=== PATIENT | female | born 1970 | race Caucasian/White ===

== ENCOUNTER 2024-05-02 13:56 | Outpatient (CLI) | payer OTHER, SELFPAY | END 2024-05-02 13:57 | disposition home or self-care (01) | LOC: NFLDUCREF 13:57 | PROVIDERS: PCP Student in an Organized Health Care Education/Training Program; Visit Provider Nurse Practitioner Family | DX: M79.646 Pain in unspecified finger(s) (principal); M25.449 Effusion, unspecified hand | CPT/HCPCS: 84550 ==

== ENCOUNTER 2025-09-15 16:48 | Emergency (ER) | payer MEDICARE, SELFPAY ==
--- OUTSIDE RECORDS SUMMARY | 2024-07-22 01:22 | XMS_ITS | Continuity of Care Document ---
Author Organization [facility] Address [address] [address] [place] [address] Phone Care Team Providers Care Chemistry Department Chair Name Role Phone Theron Snyder MD Unavailable Unavailable Allergies, Adverse Reactions, Alerts Substance Reaction Status Criticality codeine Anaphylaxis Active No Information Medications Medication Instructions Dosage Effective Dates (start - stop) Status Comments pantoprazole 40 mg tablet,delayed release take 1 tablet by oral route every day 30 min before your first meal of the day - Active Needs to keep 06/04/24 OV for further refills. hydroxyzine HCl 10 mg tablet take 2 tablet by oral route every day for 1 bedtime 2 tablet - Active albuterol sulfate HFA 90 mcg/actuation aerosol inhaler inhale 2 puff by inhalation route every 4 - 6 hours as needed 180 MCG - Active Dulcolax (bisacodyl) 5 mg tablet,delayed release Take 2 tablets per colonoscopy prep instructions received from [facility] - Active Procedure date: 10/12/22 Miralax 17 gram/dose oral powder Take by oral route as directed per colonoscopy prep instructions received from [facility] - Active Please dispense TWO bottles for procedure date 10/12/22. gabapentin 100 mg capsule take 1 capsule by oral route 3 times every day 100 MG - Active gabapentin 800 mg tablet take 1 tablet b y oral route 3 times every day 800 MG - Active Ambien 5 mg tablet take 1 tablet by oral route every bedtime as needed up to every other night 5 MG - Active amitriptyline 100 mg tablet take 3 tablet by oral route every day at bedtime 300 MG - Active Paxil 40 mg tablet take 1.5 tablet by oral route every day 60 MG - Active hydrochlorothiazide 12.5 mg tablet take 1 tablet by oral route every day 12.5 MG - Active metoprolol succinate ER 100 mg tablet,extended release 24 hr take 1 tablet by oral route every day 100 MG - Active Vitamin D2 1,250 mcg (50,000 unit) capsule take 1 capsule by oral route every week 85734 UNITS - Active Fish Oil 1,200 mg (144 mg-216 mg) capsule take 2 by oral route every day 2 - Active Citracal-D3 Gummies 250 mg-12.5 mcg (500 unit) chewable tablet take 1 tablet by oral route every day 1 tablet - Active morphine ER 15 mg tablet,extended release take 1 tablet by oral route 2 times every day along with 30mg 15 MG - Active Valium 5 mg tablet take 2 tablet by oral route as needed for dental treatments - Active Procedures Procedure Date Ugi Endo; Dx W/wo Collec Specm 23 Colonoscopy Flex; W/remov Les- 23 Colonoscopy Flex; W/bx 1/mx Ugi Endo; W/bx 1/mx Level Iv-surg Path Gross/micro 23 Offic/outpt E&m New Mod-hi Routine Serum Collection Ercp; Dx W/wo Specmn (jul Pro) 07 Init Inpt Cons New/est Mod-hi 7 Subsqt Hosp-da E&m Minr Compl 7 Ercp; W/endo Retro Remov Stone 07 Ercp; W/sphincterotomy/papillo Ercp; W/endo Retro Insrt Tube/ Advance Directives Directive Yes / No Effective Date File Name No Information Encounters Encounter Description Practice Location Reason(s) For Visit Diagnoses Date Provider Providers Copied on Encounter [facility], [address] [address], [place], [id number], [place] tel:[phone] [facility] No Information 0 4 Lillian Crump. [address] [facility], [place], [place], [id number], [place]. tel:[phone] [facility], [address] [address], [place], [id number], [place] tel:[phone] [facility] No Information 0 4 Nuria Bautista [address] [facility], [facility] [address], [place], [place], [id number], [place]. tel:[phone] [facility], [address] [address], [place], [id number], [place] tel:[phone] [facility] Pimentel's esophagus without dysplasiaReac tive gastropathyBa rrett's esophagus without dysplasia 3 Nuria Bautista [address] [facility], [facility] [address], [place], [place], [id number], [place]. tel:[phone] Referring Provider: Referral Self, USE FOR SELF REFERRALS. [facility], [address] [address], [place], [id number], [place] tel:[phone] [facility] GI Symptoms or Concerns (chief complaint) Gastric ulcer with hemorrhage, unspecified chronicityGas tritis and duodenitisEso phageal abnormalityIr on deficiencyBen ign colon polypIron deficiencyAbn ormal weight lossIron deficiency anemia, unspecifiedBa rrett's esophagus without dysplasiaGast roduodenitis, unspecified, without bleedingChron ic or unspecified gastric ulcer with hemorrhage 3 Addi Strickland. [address] [facility], [place], [place], [id number], [place]. tel:[phone] [facility], [address] [address], [place], [id number], [place] tel:[phone] [facility] Elevated liver enzymesHepati c steatosis 2 Lillian Crump. [address] [facility] [address], [place], [id number], [place]. tel:[phone] [facility], [address] [address], [place], [place], [id number], [place] tel:[phone] [facility] No Information 2 Cole Paige. [address] [place], [place], [id number], [place]. tel:[phone] Offic/outpt E&m New Mod-hi [facility], [address] [address], [place], [place], [id number], [place] tel:[phone] [facility] GI Symptoms or Concerns (chief complaint) Elevated liver enzymesHepati c steatosisWeig ht lossIron deficiencyPos tprandial RUQ painConstipat ion, unspecified constipation type 2 Lillian Crump. [address] [facility] [address], [place], [id number], [place]. tel:[phone] [facility], [address] [address], [place], [place], [id number], [place] tel:[phone] [facility] [address] No Information 2 Alexys Payan. [address] [facility] [address], [place], [id number], [place]. tel:[phone] [facility], [address] [address], [place], [place], [id number], [place] tel:[phone] [facility] No Information 7 Maggie Sanchez. [address], [id number], [place]. tel:[phone] Referring Provider: Diana Marrufo MD, [address], [place], [address]. tel:[phone] Init Inpt Cons New/est Mod-hi [facility], [address] [address], [place], [id number], [place] tel:[phone] [facility] No Information 7 No Information Referring Provider: Diana Marrufo MD, [address], [place], [address]. tel:[phone] Subsqt Hosp-da E&m Minr Compl [facility], [address] [address], [place], [id number], [place] tel:[phone] [facility] No Information 7 Nesset VERITO Henao. [address] [facility] [address], [place], [id number], [place]. tel:[phone] Referring Provider: Listed Not. [facility], [address] [address], [place], [id number], [place] tel:[phone] [facility] No Information 7 Maggie Sanchez. [address] [facility] [address], [place], [id number], [place]. tel:[phone] Family History Family Member Type Diagnosis Age At Onset Daughter Problem (finding) GERD Brother Problem (finding) Diverticular disease Brother Problem (finding) Colon polyps Mother Problem (finding) Cancer, uterine Father Problem (finding) Alcoholism Father Problem (finding) Cancer, bladder Father Problem (finding) Colon polyps Mother Problem (finding) Gallbladder disease Brother Problem (finding) Asthma Daughter Problem (finding) Diverticular disease Sister Problem (finding) Alcoholism Daughter Problem (finding) Asthma Daughter Problem (finding) Irritable bowel syndrom e Sister Problem (finding) Gallbladder disease Immunizations Vaccine Date Status Comments Twinrix administered Note: [facility] bi-d irectional interface ; Source: Other Registry Twinrix administered Note: [facility] bi-d irectional interface ; Source: Other Registry Twinrix administered Note: [facility] bi-d irectional interface ; Source: Other Registry tetanus toxoid, reduced diphtheria toxoid, and acellular pertussis vaccine, adsorbed administered Note: [facility] bi-direct ional interface ; Source: Other Registry Pneumovax administered Note: [facility] bi-d irectional interface ; Source: Other Registry Payers Payer name Insurance type Covered democrat ID Sandra dorsey(kenan Obrien [id number] Social History Type Description Quantity Date Captured Comments Sex Female Smoking Status No Information Chief Complaint And Reason For Visit No Information Reason For Referral Reason For Referral No Information Plan Of Treatment Date Type Action Status Referral Ordered: MRI Elastography Liver WITHOUT And WITH Contrast Appointment date/timeframe: 10/28/2022 ordered Referral Ordered: Colonoscopy Appointment date/timeframe: 12/08/2022 ordered Referral Ordered: PT/INR Appointment date/timeframe: 11/02/2022 ordered Referral Ordered: Hepatic Function Panel Appointment date/timeframe: 11/02/2022 ordered Referral Ordered: EGD Appointment date/timeframe: 12/08/2022 ordered History Of Present Illness Encounter Date Complaint History Of Prese nt Illness GI Symptoms or Concerns GI Symptoms or Concerns The clemente ent is a 52-year-old female, who presents for consultation at the request of Dr. Maye Acuña for evaluation of elevated liver enzymes. The patient states that she has had intermittent liver enzymes dating back to even 2002, which she thought was related to medications at that time, however, overall unclear cause. The patient was recently seen by her provider. Labs were obtained in July 2024, which revealed evidence of iron deficiency with iron saturation of 17%, ferritin of 130. Additional studies revealed positive hepatitis A antibody, negative hepatitis A IgM, negative hepatitis C antibody, positive hepatitis B surface antibody, normal TSH level 0.59. Additional labs revealed negative ANCA, normal ceruloplasmin level. Liver enzymes remained elevated with total bilirubin of 1.7, indirect of 0.9, alk phos of 64, AST of 160, ALT of 301. An abdominal ultrasound was then obtained, which revealed surgically absent gallbladder, slightly coarsened hepatic echotexture, c Functional Status Date Functional Assessmen t No Information Instructions Date Instruction Additional Infor mation Diverticulosis/Diverticulitis Re lated to Benign colon polyp Colon Polyps Related to Benig n colon polyp Colon Cancer Prevention Related to Benign colon polyp High Fiber Diet Related to Benig n colon polyp NSAIDS List Related to Benig n colon polyp 1. Labs today.2. We will schedule the patient for a colonoscopy and upper endoscopy for evaluation of iron deficiency, upper abdominal pain and weight loss.3. Further recommendations pending test results. We did discuss the possible need for liver biopsy versus MR elastography to assess the degree of fibrosis. The patient advised to continue to avoid alcohol entirely. Clinic followup in 3 months. Related to Elevated liver enzymes Assessments Type Assessment Date No Information Patient Care Teams Name Effective Dates (start - stop) Status Members No Information
--- OUTSIDE RECORDS SUMMARY | 2025-09-15 16:51 | XMS_ITS | Clinical Summary ---
Author Organization [facility] Address [facility] [place] [address] Care Team Providers Care Pathology Laboratory Aide Name Role Phone Makayla Phelps Primary Care Provider [phone] Allergies Active Allergy Reactions Criticality Noted Date Comments Codeine Throat Swelling/Closing High 12/11/2006 Medications omega-3 fatty acids-vitamin E (FISH OIL) 1,000 mg Cap Take 2 capsules by mouth once daily. 0 03/19/20 10 Active aspirin (ECOTRIN) 81 mg enteric coated tablet Take 1 tablet by mouth once daily with a meal. 0 08/21/20 15 Active calcium citrate-vitamin D3, 250 mg-200 units, tablet Take 1 tablet by mouth once daily. 0 05/11/20 17 Active Cholecalciferol, Vitamin D3, 2,000 unit tablet Take 1 tablet by mouth once daily. 0 05/11/20 17 Active Blood Glucose Control, Low (True Metrix Level 1) solnIndications:C ontrolled type 2 diabetes mellitus without complication, without long-term current use of insulin (HC) As directed. 1 Each 3 05/08/20 24 Active blood sugar diagnostic (Blood Glucose Test) stripIndications: Controlled type 2 diabetes mellitus without complication, without long-term current use of insulin (HC) Test 1 times per day.Dispense strips covered by pts insurance. 100 Each 3 08/29/20 24 Active alcohol swabs (DropSafe Alcohol Prep Pads)Indications: Controlled type 2 diabetes mellitus without complication, without long-term current use of insulin (HC) For home use. 300 Each 3 08/29/20 Active lancets 33 gauge miscIndications:C ontrolled type 2 diabetes mellitus without complication, without long-term current use of insulin (HC) As directed. To use daily. Dispense strips covered by pts insurance. 100 Each 08/29/20 Active blood-glucose meterIndications: Controlled type 2 diabetes mellitus without complication, without long-term current use of insulin (HC) Dispense meter covered by pts insurance. Patient wants One Touch Ultra 1 Each 12/30/19 Active lancetsIndication s:Controlled type 2 diabetes mellitus without complication, without long-term current use of insulin (HC) As directed. Test 1 times per day. 100 Each 12/30/19 Active blood sugar diagnostic stripIndications: Controlled type 2 diabetes mellitus without complication, without long-term current use of insulin (HC) Dispense item covered by pt ins. E11.65 IDDM type II, uncontrolled - Test 3 times/day. One Touch Ultra Test Strips 270 Each 12/30/19 Active gabapentin (NEURONTIN) 100 mg capsuleIndication s:Neck pain, chronic,Chronic low back pain, unspecified back pain laterality, unspecified whether sciatica present Take 1 Capsule (100 mg) by mouth three times daily. with 800 mg dose 270 Capsule 1 08/22/20 25 Active gabapentin (NEURONTIN) 800 mg tabletIndications :Neck pain, chronic,Chronic low back pain, unspecified back pain laterality, unspecified whether sciatica present Take 1 Tablet (800 mg) by mouth three times daily. 270 Tablet 1 08/22/20 25 Active hydroCHLOROthiazi de 12.5 mg tabletIndications :Hypertension Take 1 Tablet (12.5 mg) by mouth once daily. 90 Tablet 1 08/22/20 25 Active metoprolol succinate (TOPROL XL) 100 mg Sustained-Release tabletIndications :SVT (supraventricular tachycardia) (HC) Take 1 Tablet (100 mg) by mouth once daily. 90 Tablet 1 08/22/20 25 Active pantoprazole (PROTONIX) 40 mg delayed-release tabletIndications :Willis's esophagus without dysplasia Take 1 Tablet (40 mg) by mouth once daily. 90 Tablet 3 08/22/20 25 Active PARoxetine (PAXIL) 40 mg tabletIndications :Major depressive disorder, recurrent, in remission, unspecified Take 1.5 Tablets (60 mg) by mouth once daily in the morning. 135 Tablet 1 08/22/20 25 Active amitriptyline 10 mg tabletIndications :Neck pain, chronic,Chronic low back pain, unspecified back pain laterality, unspecified whether sciatica present Take 3 Tablets (30 mg) by mouth at bedtime. 270 Tablet 1 08/22/20 25 Active albuterol HFA (PRO-AIR; VENTOLIN; PROVENTIL) 90 mcg/actuation inhalerIndication s:Mild intermittent asthma without complication (HC) INHALE 1 TO 2 PUFFS EVERY 4 HOURS NEEDED FOR SHORTNESS OF BREATH 1 Each 3 08/22/20 25 Active glipiZIDE extended-release (GLUCOTROL XL) 10 mg Extended-Release tabletIndications :Type 2 diabetes mellitus with hyperglycemia, without long-term current use of insulin (HC) Take 1 Tablet (10 mg) by mouth once daily before a meal. 90 Tablet 08/25/20 25 Active albuterol HFA (PRO-AIR; VENTOLIN; PROVENTIL) 90 mcg/actuation inhalerIndication s:Mild intermittent asthma without complication (HC) INHALE 1 TO 2 PUFFS EVERY 4 HOURS NEEDED FOR SHORTNESS OF BREATH 1 Each 1 08/29/20 24 025 Discontin ued(Reord er (E-cancel not sent)) pantoprazole 40 mg delayed-release tabletIndications :Willis's esophagus without dysplasia Take 1 Tablet (40 mg) by mouth once daily. 90 Tablet 2 03/10/20 25 025 Discontin ued(Reord er (E-cancel not sent)) gabapentin (NEURONTIN) 800 mg tabletIndications :Neck pain, chronic,Chronic low back pain, unspecified back pain laterality, unspecified whether sciatica present Take 1 Tablet (800 mg) by mouth three times daily. 270 Tablet 1 06/02/20 25 025 Discontin ued(Reord er (E-cancel not sent)) glipiZIDE extended-release (GLUCOTROL XL) 5 mg Extended-Release tabletIndications :Uncontrolled type 2 diabetes mellitus with hyperglycemia (HC) Take 1 Tablet (5 mg) by mouth once daily before a meal. 90 Tablet 06/02/20 25 10/10/2 025 Discontin ued(Reord er (E-cancel not sent)) hydroCHLOROthiazi de 12.5 mg tabletIndications :Hypertension Take 1 Tablet (12.5 mg) by mouth once daily. 90 Tablet 1 06/02/20 25 025 Discontin ued(Reord er (E-cancel not sent)) metoprolol succinate (TOPROL XL) 100 mg Sustained-Release tabletIndications :SVT (supraventricular tachycardia) (HC) Take 1 Tablet (100 mg) by mouth once daily. 90 Tablet 1 06/02/20 025 Discontin ued(Reord er (E-cancel not sent)) PARoxetine (PAXIL) 40 mg tabletIndications :Major depressive disorder, recurrent, in remission, unspecified Take 1.5 Tablets (60 mg) by mouth once daily in the morning. 135 Tablet 1 06/02/20 Discontin ued(Reord er (E-cancel not sent)) amitriptyline 10 mg tabletIndications :Neck pain, chronic,Chronic low back pain, unspecified back pain laterality, unspecified whether sciatica present Take 3 Tablets (30 mg) by mouth at bedtime. 270 Tablet 1 06/02/20 025 Discontin ued(Reord er (E-cancel not sent)) gabapentin (NEURONTIN) 100 mg capsuleIndication s:Neck pain, chronic,Chronic low back pain, unspecified back pain laterality, unspecified whether sciatica present Take 1 Capsule (100 mg) by mouth three times daily. with 800 mg dose 270 Capsule 08/05/20 025 Discontin ued(Reord er (E-cancel not sent)) glipiZIDE extended-release (GLUCOTROL XL) 5 mg Extended-Release tabletIndications :Type 2 diabetes mellitus with hyperglycemia, without long-term current use of insulin (HC) Take 1 Tablet (5 mg) by mouth once daily before a meal. 90 Tablet 1 08/22/20 25 025 Discontin ued(*Medi cation adjustmen t) Active Problems Problem Noted Date Diagnosed Date S/P excision of ganglion cyst 04/18/2025 Subcutaneous mass of left thumb 02/13/2025 Paroxysmal tachycardia 02/10/2025 Ganglion of flexor tendon sheath of left thumb 0 01/17/2025 Pain of left thumb 01/17/2025 Rheumatoid arthritis, seropositive 12/04/2024 Lung nodules 09/10/2024 Overview (09/11/2024): 09/10/24- Lung RAD 3 with a 3mm nodule in the right lung, 6mm nodule RLL, 8mm nodule left lung, and 4mm TYE. Plan- repeat scan in 6 months per lung screening hub. Willis's esophagus without dysplasia 09/02/2024 Controlled substance agreement broken 08/26/2024 Overview (08/26/2024): CSA signed 04/24/23 and broken on 08/20/24 due to THC/marijuana metabolites found on random urine drug screening. ATTILA Odell .................... 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 SLAUGHTER (nonalcoholic steatohepatitis) 11/20/2021 HTN (hypertension) 03/22/2021 Fibromyalgia 03/28/2019 Overview (03/28/2019): Rheumatology consult 2006 Controlled type 2 diabetes mylene drake without complication, without long-term current use of insulin 07/18/2018 SVT (supraventricular tachycardia) 09/08/2015 Overview (09/08/2015): - S/P AVNRT ablation Hyperlipidemia 08/26/2014 Ganglion of joint, left wrist 01/03/2013 Hypertension 12/27/2012 DDD (degenerative disc disease), thoracic 2011 Piriformis syndrome 01/26/2012 Seasonal allergies 11/24/2011 Overview (11/24/2011): Causes asthma to act up Asthma, mild intermittent 11/24/2011 Overview (11/24/2011): Primarily allergy induced Issue of repeat prescriptions 03/31/2011 Overview (10/29/2022): Morphine CR 15 BID #60 per month Needs med management visit Q 4 months Former smoker - quit 2017 (30 pack year hx) 03/13 Recurrent major depressive disorder, in full rem ission 12/11/2006 CHRONIC NECK PAIN 12/11/2006 Overview (05/21/2015): On chronic narcotics - changing to long acting morphine from norco 01/2014 Needs OV Q 6 months to monitor Wilson for breakthrough #60 every 2 months at most Mitral valve disorders 12/11/2006 Overview (12/11/2006): Takes abx prior to dental procedures Resolved Problems Problem Noted Date Diagnosed Date Resolved Date Controlled substance agreement signed 08/08/2023 08/26/2024 Pain medication agreement 07/02/2012 Overview (08/22/2025): Started long acting morphine 01/2014 15 mg BID Diagnosis Code replaced due to regulatory update Abdominal pain, generalized 12/11/2006 11/16/2018 Overview (12/12/2006): billiary leak seen on HIDA Pneumonia, organism unspecified(486) 12/11/2006 11/16/2018 Unspecified asthma(493.90) 12/11/2006 0 11/24/2011 Encounters Date Type Department Care Team Description 09/15/2025 Nurse Triage [facility] [address] [place] [address] Makayla Phelps PA Seizure 09/08/2025 Telephone [facility] [address] [facility] [address] [place] [phone] Cardiology, An 08/22/2025 3:40 PM CDT Office Visit [facility] [address] [place] [address] Makayla Phelps PA Diabetes (Discuss Glipizide ); Medication Management (Refills of medications and Albuterol. ) 08/22/2025 Travel 08/04/2025 Refill [facility] [address] [place] [address] Makayla Phelps PA Refill Request (gabapentin (NEURONTIN) 100 mg capsule ) from Last 3 Months Immunizations Immunization Administration Dates Next Due HepA-HepB (Twinrix) 06/11/2020,03/24/2020,2019 Pneumococcal Poly,23-Valent (Pneumovax) 03/26/20 09 Td (Age >=7 Years) 09/05/2016 Tdap 09/05/2016,04/24/2006 Family History Medical History Relation Name Comments Other Brother migraine Cancer Father bladder cancer Hypertension Father Hypertension Mother Other Sister migraine Relation Name Status Comments Brother Father Mother Sister Social History Tobacco Use Types Packs/Day Years Used Date Smoking Tobacco: Former Cigarettes 1 30 0 11/13/1986 - 11/13/2016 Smokeless Tobacco: Never Tobacco Cessation:Counseling Given: No Comments:Currently using e-cig that containes nicotine Alcohol Use Standard Drinks/Week Comments No 0 (1 standard drink = 0.6 oz pur e alcohol) PHQ-2 Answer Date Recorded PHQ-2 TOTAL SCORE 3 04/18/2025 Social Connections Answer Date Recorded Frequency of Communication with Friends and Fami ly 0 03/10/2022 Financial Resource Strain Answer Date R ecorded Difficulty of Paying Living Expenses 3 03/10/2022 Difficulty of Paying Living Expenses Not on file 03/10/2022 Food Insecurity Answer Date Recorded Worried About Running Out of Food in the Last Ye ar 1 03/10/2022 Transportation Needs Answer Date Record ed Lack of Transportation (Medical) 1 03/10/2022 Housing Stability Answer Date Recorded Unable to Pay for Housing in the Last Year 1 03/10/2022 Comments No Sex and Gender Information Value Date Recorded Sex Assigned at Not on file Legal Sex Female 5:51 AM CHIEF PROJECTIONIST Gender Identity Not on file Sexual Orientation Not on file Occupation Industry Job Start Date Job End Date disabled Not on file Not on file Not on file Obstetrics History Para Term AB IAB SAB Ectopic Multiple Livin g Live Births 3 2 1 0 1 0 1 0 0 1 Date Outcome GA Total Labor Labor/2nd/3rd Weight Sex Type Anes PTL Jaclyn A1 A5 Name Clin SAB Term Para Last Filed Vital Signs Vital Sign Reading Time Taken Comments Blood Pressure 120/76 08/22/2025 3:41 PM CDT Pulse 66 08/22/2025 3:41 PM CDT Temperature 36.7 C (98 F) 02/13/2025 11:45 AM CDT Respiratory Rate 16 02/13/2025 11:45 AM CDT Oxygen Saturation 97% 08/22/2025 3:41 PM CDT Inhaled Oxygen Concentration - - Weight 90.3 kg (199 lb) 08/22/2025 3:41 PM CDT Height 165.1 cm (5' 5) 02/13/2025 9:26 AM CDT Body Mass Index 33.12 02/13/2025 9:26 AM CDT Plan of Treatment Upcoming Encounters Date Type Department Care Team (Late st Contact Info) Description 09/16/2025 9:55 AM CHIEF PROJECTIONIST Office Visit [facility] [address] [place] [address] Makayla Phelps PA [address] [place] [address] 02/20/2026 4:05 PM CDT Office Visit [facility] [address] [place] [address] Makayla Phelps PA [address] [place] [address] Health Maintenance Due Date Last Done Comments Pneumococcal series for age 50+ (2 of 2 - PCV) 03/26/2010 03/26/2009 Zoster (shingles) series for age 50+ (1 of 2) 2020 Pap test for age 21-65 07/18/2023 8, 07/18/2018, 07/18/2018 (Verified in Care Everywhere or Patient Record), Additional history exists Influenza Vaccine (#1) [address] (for lung CA) ag e 50-80 09/10/2025 09/10/2024 Mammogram for age 45-75 09/10/2025 09/10/20 24, 04/13/2021, 08/06/2019, Additional history exists BMI (ht and wt on same day) for age 18+ 02/10/2026 02/10/2025, 12/11/2023, 12/14/2020, Additional history exists Depression screening for age 12+ 04/18/2026 04/18/2025, 12/13/2023, 12/11/2023, Additional history exists Tetanus booster 09/05/2026 09/05/2016, 08/14, 04/24/2006 Colonoscopy through age 75 12/08/2027 12/08/2022, Lipids for age 45-75 04/18/2030 04/18/2025, 12/11/2023, 12/14/2020, Additional history exists RSV vaccine for adults or (1 - 1-dose 75+ series) 2045 Hepatitis B series for 19+ Completed 06/11, 03/24/2020, 11/25/2019 Hepatitis C screening for ag e 18-79 Completed 07/27/2022 HIV for age 15-65 Completed 12/11/2023 Medical Devices Implanted Type Area Director Of Analytics Device Identifier Shelf Expiration Date Model / Serial / Lot Stent Biliary 10-7 Ramo Olsen - [id number] [facility] / / Procedures Procedure Name Priority Date/Time Associated Diagnosis Comments COMP METABOLIC PANEL Routine 08/22/2025 4:42 PM CDT SLAUGHTER (nonalcoholic steatohepatitis) HTN (hypertension) URINE ALBUMIN TO CREATININE RATIO, RANDOM Routine 08/22/2025 4:42 PM CDT Type 2 diabetes mellitus with hyperglycemia, without long-term current use of insulin (HC) HEMOGLOBIN A1C MONITORING (POCT) Routine 08/22/2025 4:42 PM CDT Type 2 diabetes mellitus with hyperglycemia, without long-term current use of insulin (HC) LIPID PANEL W REFLEX MEASURED LDL Routine 04/18/2025 1:40 PM CDT Mixed hyperlipidemia XR MAMMO BILAT SCREENING Routine 09/10/2024 8:24 AM CDT Encounter for screening mammogram for malignant neoplasm of breast CT CHEST SCREENING LOW DOSE WO CONTRAST Routine 09/10/2024 8:23 AM CDT Encounter for screening for lung cancer Personal history of nicotine dependence ANTI HIV 1/2 Routine 12/11/2023 1:00 PM CHIEF PROJECTIONIST Encounter for screening for human immunodeficiency virus (HIV) SCAN-COLONOSCOPY 12/08/2022 10:3 0 AM CHIEF PROJECTIONIST ANTI HCV Add On 07/27/2022 11:49 AM CDT Abnormal LFTs (liver function tests) EDI SPECIALIST THIN PREP PAP SCREEN IMAGED Routine 07/18/2018 9:05 AM CDT Cervical cancer screening from Last 3 Months or Most Recently Relevant to Health Maintenance Results * (ABNORMAL) URINE ALBUMIN TO CREATININE RATIO, RANDOM (08/22/2025 4:42 PM CDT) ALB RAND URINE 172.0 mg/L 08/23/2025 12:33 AM CDT [facility] CREATININE,URIN E 1.74 g/L 08/23/2025 12:33 AM CDT [facility] ALBUMIN TO CREATININE RATIO,RAND UR 98.9(H) <30.0 mg/g creat 08/23/2025 12:33 AM CDT [facility] Urine URINE SPECIMEN / Unknown Non-Blood / Unknown 08/22/2025 4:42 PM CDT 08/22/2025 4:42 PM CDT Narrative [facility] - 08/23/2025 12:33 AM CDT If Albumin to Creatinine Ratio is elevated, consider the following: Elevations seen with incipient nephropathy associated with diabetes mellitus or hypertension. Stress, exercise,hematuria, and urinary tract infection may also produce elevated results. If clinically indicated, confirm with 24 Hour Albumin to Creatinine Ratio. us Makayla AIKEN URINE Final Res ult [facility] [address] [place] [address], * (ABNORMAL) HEMOGLOBIN A1C MONITORING (POCT) (08/22/2025 4:42 PM CDT) POC HEMOGLOBIN A1C 8.7(H) <6.0 % OF TOTAL HGB 08/22/2025 4:55 PM CDT [facility] Comment: Any point of care results exhibiting inconsistency with the patient's clinical status should be repeated using a different testing method. Blood BLOOD SPECIMEN / Unknown [facility] / Unknown 08/22/2025 4:42 PM CDT 08/22/2025 4:42 PM CDT us Makayla AIKEN CHEMISTRY Final Res ult [facility] [address] [place] [address], [place] [phone] [facility] [address] [place] [address], [place] [phone] * (ABNORMAL) COMP METABOLIC PANEL (08/22/2025 4:42 PM CDT) Pathologist [facility] SODIUM 136 135 - 146 mmol/L 08/23/2025 7:07 AM CDT [facility] POTASSIUM 3.8 3.5 - 5.3 mmol/L 08/23/2025 7:07 AM CDT [facility] CHLORIDE 101 98 - 110 mmol/L 08/23/2025 7:07 AM CDT [facility] CARBON DIOXIDE 23 20 - 32 mmol/L 08/23/2025 7:07 AM CDT [facility] GLUCOSE 208(H) 65 - 99 mg/dL 08/23/2025 7:07 AM CDT [facility] Comment: Fasting reference interval For someone without known diabetes, a glucose value >125 mg/dL indicates that they may have diabetes and this should be confirmed with a follow-up test. CALCIUM 10.0 8.6 - 10.4 mg/dL 08/23/2025 7:07 AM CDT [facility] CREATININE 1.01 0.50 - 1.03 mg/dL 08/23/2025 7:07 AM CDT [facility] BUN/CREATININE RATIO SEE NOTE: 6 - 22 (calc) 08/23/2025 7:07 AM CDT [facility] Comment: Not Reported: BUN and Creatinine are within reference range. EGFR 66 > OR = 60 mL/min/1. 73m2 08/23/2025 7:07 AM CDT [facility] ALBUMIN 4.5 3.6 - 5.1 g/dL 08/23/2025 7:07 AM CDT [facility] PROTEIN, TOTAL 7.6 6.1 - 8.1 g/dL 08/23/2025 7:07 AM CDT [facility] BILIRUBIN, TOTAL 1.0 0.2 - 1.2 mg/dL 08/23/2025 7:07 AM CDT [facility] ALKALINE PHOSPHATASE 67 37 - 153 U/L 08/23/2025 7:07 AM CDT [facility] ALT 88(H) 6 - 29 U/L 08/23/2025 7:07 AM CDT [facility] AST 60(H) 10 - 35 U/L 08/23/2025 7:07 AM CDT [facility] UREA NITROGEN (BUN) 12 7 - 25 mg/dL 08/23/2025 7:07 AM CDT [facility] GLOBULIN 3.1 1.9 - 3.7 g/dL (calc) 08/23/2025 7:07 AM CDT [facility] ALBUMIN/GLOBULI N RATIO 1.5 1.0 - 2.5 (calc) 08/23/2025 7:07 AM CDT [facility] Blood BLOOD SPECIMEN / Unknown [facility] / Unknown 08/22/2025 4:42 PM CDT 08/22/2025 4:42 PM CDT us Makayla AIKEN CHEMISTRY Final Res ult [facility] [address] [place] [address], * (ABNORMAL) LIPID PANEL W REFLEX MEASURED LDL (04/18/2025 1:40 PM CDT) CHOLESTEROL, TOTAL 216(H) <200 mg/dL [facility] HDL CHOLESTEROL 61 > OR = 50 mg/dL [facility] TRIGLYCERIDES 234(H) <150 mg/dL [facility] Comment: If a non-fasting specimen was collected, consider repeat triglyceride testing on a fasting specimen if clinically indicated. Nikunj et al. J. of Clin. Lipidol. 2015;9:129-169. LDL-CHOLESTEROL 120(H) mg/dL (calc) [facility] Comment: Reference range: <100 Desirable range <100 mg/dL for primary prevention; <70 mg/dL for patients with CHD or diabetic patients with > or = 2 CHD risk factors. LDL-C is now calculated using the Seble calculation, which is a validated novel method providing better accuracy than the Friedewald equation in the estimation of LDL-C. Ben SS et al. NALLELY. 2013;310(19): 9158-5571 (http://education.Usersnap/faq/MEC509) CHOL/HDLC RATIO 3.5 <5.0 (calc) [facility] NON HDL CHOLESTEROL 155(H) <130 mg/dL (calc) [facility] Comment: For patients with diabetes plus 1 major ASCVD risk factor, treating to a non-HDL-C goal of <100 mg/dL (LDL-C of <70 mg/dL) is considered a therapeutic option. Blood BLOOD SPECIMEN / Unknown 04/18/2025 1:40 PM CDT 04/18/2025 1:40 PM CDT Makayla AIKEN CHEMISTRY Final Res ult [facility] [address] [place] [address], [facility] [address] [place] [address] * XR MAMMO BILAT SCREENING (09/10/2024 8:24 AM CDT) Anatomical Region Laterality Modality BREASTS, Breast Left, Breast Right Bilateral Mammography Impressions 09/10/2024 3:21 PM CDT There is no radiographic evidence for malignancy. Recommend annual mammograms. MAMMOGRAM ASSESSMENT: ACR 1 Negative PATIENTS: You will also receive a letter with your examination results in an easy to read format. If you have questions about your results, please contact your referring provider. Narrative 09/10/2024 3:21 PM CDT For Patients: As a result of the Cures Act, medical imaging exams and procedure reports are released immediately into your electronic medical record. You may view this report before your referring provider. If you have questions, please contact your health care provider. XR MAMMO BILAT SCREENING [[id number]] CLINICAL HISTORY: This is an asymptomatic 54 y.o. patient. INDICATION FOR EXAM: Mammogram Screening. TECHNIQUE: CC & MLO views were obtained. This study was evaluated with the assistance of Computer-Aided Detection. COMPARISON FILM: Yes 04/13/21 [employer] 08/06/19 [employer] FINDINGS: There are scattered areas of fibroglandular density. There are no dominant masses, suspicious micro calcifications or areas of architectural distortion. us Makayla AIKEN MAMMO Final Res ult * CT CHEST SCREENING LOW DOSE WO CONTRAST [[id number]] -- NOTE: to meet CMS requirements, this order ONLYto be placed by the person completing the Shared Decision Making Visit (09/10/2024 8:23 AM CDT) Anatomical Region Laterality Modality Computed Tomogra phy Impressions 09/10/2024 9:27 PM CDT Multiple pulmonary nodules. Lung-RADS Category 3: Probably benign. Follow-up low-dose chest CT is recommended in 6 months. Please note that all CT scans at this facility use dose modulation, iterative reconstruction and/or weight-based dosing when appropriate to reduce radiation dose to as low as reasonably achievable. Dictated by: David Campos MD @09/10/2024 9:16:31 AM Neuroradiologist CRL:paris Narrative 09/10/2024 9:27 PM CDT For Patients: As a result of the Cures Act, medical imaging exams and procedure reports are released immediately into your electronic medical record. You may view this report before your referring provider. If you have questions, please contact your health care provider. CT CHEST SCREENING LOW-DOSE WITHOUT CONTRAST, 09/10/2024 INDICATION: Lung cancer screening. TECHNIQUE: Low-dose lung cancer screening noncontrast CT chest. Dose reduction techniques were used. COMPARISON: None. FINDINGS: No focal consolidation, pleural effusion, or pneumothorax. Solid 3 mm nodule along the RIGHT minor fissure (series 5 image 71). Solid 6 mm nodule in the RIGHT lower lobe (series 5 image 96). Solid 8 mm nodule along the LEFT major fissure (series 5 image 33). Solid 4 mm nodule in the LEFT upper lobe (series 5 image 57). Mild paraseptal emphysema in the lung apices. The heart size is normal. No pericardial effusion. No coronary artery atherosclerotic calcifications. No mediastinal or hilar lymphadenopathy. Diffuse hepatic steatosis. Cholecystectomy. No aggressive osseous lesions. us Makayla AIKEN CT Final Res ult * ANTI HIV 1/2 (12/11/2023 1:00 PM CHIEF PROJECTIONIST) HIV-1/HIV-2 SCREEN Non-Reacti ve Non-Reacti ve 12/12/2023 5:05 AM CHIEF PROJECTIONIST [facility] [employer] [facility] Comment:HIV-1 p24 and HIV-1/ HIV-2 Ab Not Detected. Blood BLOOD SPECIMEN / Unknown Venipuncture / Unknown 12/11/2023 1:00 PM CHIEF PROJECTIONIST 12/11/2023 1:04 PM CHIEF PROJECTIONIST us Makayla AIKEN SEND OUTS Final Res ult [facility] [address] [place] [address], [place] * SCAN-COLONOSCOPY (12/08/2022 10:30 AM CHIEF PROJECTIONIST) Narrative Procedure Note Em Fontana MD - 12/08/2022 10:26 AM CST [facility] [address], [address], [place] [address] Patient Name: Madeline Davila Gender: Female Exam Date: 12/08/2022 Visit Number: [id number] Age: 52 Years Date of : 1970 Attending MD: Em Fontana MD Medical Record#: [id number] Procedure: Colonoscopy Indications: Iron deficiency anemia Colorectal cancer screening Referring MD: Maye Acuña MD Primary MD: Maye Acuña MD Medications: Admitting Medications: 0.9% Normal Saline at TKO Intra Procedure Medications: Patient received monitored anesthesia care. Complications: No immediate complications Procedure: An examination of the heart and lungs was performed and found to be withinacceptable limits. . The patient was therefore deemed a reasonablecandidate for endoscopy and sedation. The risks and benefits of the procedure were explained to the patient.After obtaining informed consent, the patient received monitoredanesthesia care and I passed the scope without difficulty via the rectum to the ileum. The appendiceal orificeand ic valve were identified. The scope was retroflexed during theexamination The quality of the prep was good (J Luis/Gat Split). This was a complete examination throughout the entire colon. Findings: Terminal ileum with mild, dispersed red spots of undeterminedsignificance. No surrounding erythema, ulcers, edema. Biopsied with coldforceps. Polyp location: hepatic flexure. Quantity: 1. Size: 8 mm. Polyp shape:sessile. Maneuver: polypectomy was performed with a cold snare. Removal: complete. Retrieval: complete. Bleeding: none. Diverticulosis. Location: - ascending colon - hepatic flexure.Description: mild. Size: small. Quantity: many. No inflammationpresent. Diverticulosis. Location: - descending colon - sigmoid. Description:mild. Size: small. Quantity: many. No inflammation present. Anal canal: normal Remainder of the exam is normal. Impression: Benign colon polyp Iron deficiency Abnormal weight loss Preliminary Plan: The patient and their physician will receive a copy of the pathologyreport as well as pathology-based recommendations for future screening orsurveillance. Repeat colonoscopy in 7 years Recommendation Comments: Please refer to your EGD report for otherinformation Procedure: Upper GI Endoscopy Indications: Iron Deficiency Anemia Abdominal Pain, failed to respond to treatment Weight Loss Provider: Em Fontnaa MD Referring MD: Maye Acuña MD Primary MD: Maye Acuña MD Medications: Admitting Medication: 0.9% Normal Saline at TKO Intra Procedure Medications: Patient received monitored anesthesia care. Complications: No immediate complications Procedure: An examination of the heart and lungs was performed within acceptablelimits. . The patient was therefore deemed a reasonable candidate forsedation. The risks and benefits were explained to the patient, who appeared tounderstand. After obtaining informed consent, the scope was passed underdirect vision. Throughout the procedure the patient's blood pressure,pulse and oxygen saturations were monitored. The scope was introducedthrough the mouth and advanced to the third portion of duodenum. Findings: Esophagus: The z-line is 33 centimeters from the incisors. Top of the gastric foldsis 36 centimeters from the incisors. Short segment Willis's esophagus. Description - islands or tongues. Cand M Criteria: C: 0 cm in length. M: 3 cm in length. Biopsy taken at33 cm, 35 cm, 36 cm in one cup. No visible abnormalities on HD whitelight or NBI. Stomach: The diaphragm hiatus is at 37 centimeters from the incisors. Gastritis. Location - entire stomach. Description - bleeding - diffuse,with patches of mixed erosions and pallor, suggesting healed ulcers vsatrophic areas. Biopsy taken at entire stomach. Stomach ulcer. Size - 2-5mm. Number - several, associated with old heme aswell as dark iron-appearing deposits. Location - primarily in the body.Biopsy taken of ulcer(s). Maneuver - cold biopsy forceps. Duodenum: Duodenitis. Location - entire duodenum. Description - moderate - erythemawith patchy erosions in the first portion. Biopsy taken at entireduodenum Impression: Gastric ulcer with hemorrhage, unspecified chronicity Gastritis and duodenitis Esophageal abnormality Iron deficiency MD Impression Comments: Gastric ulcer findings are most consistent withiron- induced gastritis with iron deposits Preliminary Plan: Recommendation Comments: 1. Start pantoprazole 40mg daily, and take it 30min before your first meal of the day. Continue this for at least 2-3months, and then reassess after repeat endoscopy 2. Repeat upper endoscopy in 2 months to ensure ulcers have healed 3. If you are taking iron tablets, we may have to stop them and switch youto IV 4. Colonoscopy today 5. Plan for clinic follow-up with Dr. Snyder Pathology Results: A: DUODENUM, BIOPSY: 1. Erosive duodenitis, favor peptic or NSAID injury 2. Negative for celiac disease 3. Negative for dysplasia and malignancy B: STOMACH, BIOPSY: 1. Subtle changes of reactive gastropathy, endoscopically erosive(see comment) a. Sampling: Antrum and body b. Distribution: Antrum 2. Negative for inflammation, atrophy and Helicobacter C: STOMACH, BODY, ULCER, BIOPSY: 1. Reactive gastropathy, endoscopically ulcerative (see comment) a. Sampling: Body b. Distribution: Body 2. Negative for inflammation, atrophy and Helicobacter D: ESOPHAGUS, DISTAL, BIOPSY: 1. Specialized Willis's mucosa 2. Negative for dysplasia 3. Background reflux esophagitis E: ILEUM, TERMINAL, BIOPSY: 1. Normal ileal mucosa 2. Negative for active and chronic ileitis F: COLON, HEPATIC FLEXURE, POLYP: 1. Tubular adenoma 2. Negative for high grade dysplasia 3. Per the colonoscopy report: a. Polyp size: 8 mm b. Resection: Complete c. Retrieval: Complete COMMENTS B,C. The likely etiology is an ongoing non-inflammatory type mucosalinjury due to a chemical type of injury; this may be due to ingestion ofnon-steroidal anti-inflammatory drugs, aspirin (via prostaglandin-mediatedinjury), excess alcohol, corticosteroids, or bile/alkaline reflux, thelatter usually in the setting of a gastroenteric anastomosis. MICROSCOPIC A: Performed B: Performed C: Performed D: Performed E: Performed F: Performed Electronically signed by: [place] [address] Orders Diagnostics: Procedure Comments Timeframe Assessment EGD f/u gastric ulcers (and possibly willis's if bx confirm.) 2 [id number] Instruction(s)/Education: Instruction/Education Timeframe Assessment Colon Cancer Prevention K63.5 Colon Polyps K63.5 Diverticulosis/Diverticulitis K63.5 High Fiber Diet K63.5 NSAIDS List K63.5 Final Plan: Repeat colonoscopy in 7 years. Repeat Upper Endoscopy (EGD) in 2 months for Follow up ulcer andBarrett's. We will attempt to contact you at appropriate intervals via U.S. mail. Wemay not be able to find you or contact you at that time, therefore youshould know that the responsibility for following our recommendation restswith you. If you don't hear from us at the time your procedure is due,please contact our office to schedule an appointment. If your contactinformation should change, please contact our office so that we can updateyour record. Additional Comments: The likely etiology of your stomach ulcers is an ongoing non-inflammatorytype mucosal injury due to a chemical type of injury due to ingestion ofnon-steroidal anti-inflammatory drugs. (We previously established that you are not using irontablets/supplements) _Electronically signed by: Em Fontana MD 12/08/2022 cc: Maye Acuña MD cc: Maye Acuña MD us Em Fontana MD OTHER Final Res ult * ANTI HCV (07/27/2022 11:49 AM CDT) [facility] HEPATITIS C ANTIBODY Non-React jessica Non-React jessica 07/28/2022 11:30 PM CDT [facility] [employer] [facility] Comment:Antibodies to HCV no t detected; does not exclude the possibility of exposure to HCV. Blood BLOOD SPECIMEN / Unknown Butterfly / Unknown 07/27/2022 11:49 AM CDT 07/27/2022 11:50 AM CDT us Maye Acuña MD SEND OUTS Final Result [facility] [address] [place] [address], [place] * EDI SPECIALIST THIN PREP PAP SCREEN IMAGED (07/18/2018 9:05 AM CDT) [facility] Case Report Gynecologic Cytology Report Case: [id number] Authorizing Provider: Maye Acuña MD Collected: 07/18/2018 0905 Ordering Location: [facility] Received: 07/19/2018 0941 Clinic First Screen: Laura Heath Specimen: EDI SPECIALIST ThinPrep Vial Screening, Cervical 07/27/2018 3:12 PM CDT [facility] INTERPRETATION/ RESULT NEGATIVE FOR INTRAEPITHELIAL LESION OR MALIGNANCY (NIL) (none) 07/27/2018 3:12 PM CDT [facility] at 1512 CDT SPECIMEN ADEQUACY Satisfactory for evaluation Endocervical component present 07/27/2018 3:12 PM CDT [facility] HPV REQUEST HPV and PAP 07/27/2018 3:12 PM CDT [facility] Date of LMP n/a 07/27/2018 3:12 PM CDT [facility] Last Pap Date 01/30/14 07/27/2018 3:12 PM CDT [facility] Last Pap Result NIL 8 3:12 PM CDT [facility] Abnormal Pap or Hudson Bx in last 5 years No 07/27/2018 3:12 PM CDT [facility] Menstrual Status Hysterectomy-cerv ix present 07/27/2018 3:12 PM CDT [facility] [place] Bx Done Today No 07/27/2018 3:12 PM CDT [facility] Additional Information None given 07/27/2018 3:12 PM CDT [facility] Automated Review Successful 07/27/2018 3:12 PM CDT [facility] Comment:Specimen processed s uccessfully by automated dump motorman device, ThinPrep Imaging System, [employer] ANCILLARY TESTING EDI SPECIALIST HPV Ordered, Please see separate report 07/27/2018 3:12 PM CDT [facility] Note The pap test is a screening technique, not a diagnostic procedure. It is used primarily to screen for squamous cancers and precursor lesions. Published studies have shown that it is subject to both false negative and false positive results. The pap test should not be used as the sole means to diagnose or exclude pre-malignant and malignant lesions. Cytology is screened and interpreted at [facility] - [address], [place] [address] and [facility] - [address]; [place] [address] and [facility] - [address]; [place] [address] and [facility] [address]; [place] [address] 07/27/2018 3:12 PM CDT [facility] Other (Cervical) Non-Blood / Unknown 07/18/2018 9:05 AM CDT 07/19/2018 9:41 AM CDT us Maye Acuña MD PATHOLOGY/CYTOLOGY Final Resu lt [facility] [address] [place] [address], [place] from Last 3 Months or Most Recently Relevant to Health Maintenance Insurance MEDICARE PB ONLY MEDICARE PART B HB ONLY MEDICARE PART A HB ONLY Advance Directives * Full Code (Latest Code Status on File) Date Activated Date Inactivated Comments 02/13/2025 9:00 AM 02/13/2025 3:39 PM Question Answer Comments Code Status Discussion: Unable to Assess Preferences, Provider to review later * Full Code Date Activated Date Inactivated Comments 09/07/2015 10:19 AM 09/08/2015 11:48 AM * Full Code Date Activated Date Inactivated Comments 10/25/2007 9:56 AM 10/27/2007 2:09 PM * Full Code Date Activated Date Inactivated Comments 12/11/2006 6:40 PM 12/13/2006 4:16 PM Care Teams Pathology Laboratory Aide Relationship Specialty Start Date End Date Makayla Phelps PA [address] [place] [address] PCP - General Physician Mold Presser 05/15/23
[2025-09-15 17:05] VITALS: BP 129/83; PULSE 64; RESP 18; TEMP 36.6; O2SAT 97; BMI 33.6
--- NOTE | 2025-09-15 20:45 | ED.GENADULT ---
HPI - General Adult General Chief complaint: Neuro Symptoms/Altered Deficit Stated complaint: Poss. Seizure, sent by clinic Time Seen by Provider: 09/15/25 19:57 History of Present Illness HPI narrative: this 55-year-old female has a history of Adry Danlos disease and diabetes. She also has chronic pain. She comes in today at the request of her clinic because of a syncopal event that occurred 3 days ago. She states that she was sitting at the time and went unresponsive for a bit less than a minute. Her was shaking her trying to arouse her. She did not fall or injure herself. She does not remember this short time but then awoke in resumed normal consciousness. She however did have some nausea with 1 emesis and became diaphoretic afterwards. She states that she has had some episodes of feeling off balance or dizziness symptoms recently. She had been on metformin for her diabetes but was switched to glipizide because of some liver complications. She states that the glipizide dose was recently increased and that increase in dosing does seem to correlate with some of the symptoms she has been describing. Related Data Home Medications ?Medication ?Instructions ?Recorded ?Confirmed albuterol sulfate 90 mcg/actuation 2 inh inhalation Q8H PRN 05/02/24 09/15/25 aerosol inhaler amitriptyline 10 mg tablet 10 mg PO 05/02/24 09/18/24 gabapentin 100 mg capsule 100 mg PO 3XD 05/02/24 09/15/25 hydrochlorothiazide 12.5 mg tablet 12.5 mg PO DAILY 05/02/24 09/15/25 lorazepam 1 mg tablet 2 mg PO 05/02/24 09/18/24 metoprolol succinate 100 mg 100 mg PO DAILY 05/02/24 09/15/25 tablet,extended release 24 hr morphine 15 mg tablet,extended 15 mg PO BID 05/02/24 09/18/24 release pantoprazole 40 mg tablet,delayed 40 mg PO DAILY 05/02/24 09/15/25 release paroxetine HCl 40 mg tablet 60 mg PO DAILY 05/02/24 09/15/25 aspirin 81 mg tablet,delayed 81 mg PO QDAY 09/18/24 09/18/24 release (Adult Aspirin Regimen) glipizide 5 mg tablet, extended 5 mg PO DAILY 09/15/25 09/15/25 release 24 hr Allergies Allergy/AdvReac Type Severity Reaction Status Date / Time acetaminophen (From Tylenol) Allergy Verified 09/15/25 17:02 codeine Allergy Verified 09/15/25 17:02 ibuprofen Allergy Verified 09/15/25 17:02 Review of Systems Status of ROS: Reports: 10 or more systems reviewed and unremarkable except as noted in History and below Narrative: Constitutional: No fevers, no weight gain or loss. Eyes: No discharge. No vision changes. HENT: No congestion, no sore throat, no ear pain. Cardiovascular: No chest pain, no palpitations. Respiratory: No shortness of breath, no wheezes, no cough. Gastrointestinal: No abdominal pain, no vomiting, no diarrhea. Genitourinary: No dysuria, no hematuria. Musculoskeletal: Normal range of motion. Skin: No rashes, no pruritis. Neurological: No weakness, sensory change, speech change. Endo/Heme/Allergies: No bruising or bleeding. No polydipsia. Pysch: no suicidality, no anxiety, no insomnia. All other systems reviewed and are negative. [facility] Medical History Tobacco use ?Z72.0 - Tobacco use (ICD-10) Leiomyoma of uterus ?D25.9 - Leiomyoma of uterus, unspecified (ICD-10) Surgical History S/P cervical discectomy ?Z98.890 - Other specified postprocedural states (ICD-10) S/P arthroscopic knee surgery ?Z98.890 - Other specified postprocedural states (ICD-10) S/P cholecystectomy ?Z90.49 - Acquired absence of other specified parts of digestive tract (ICD-10) History of hysterectomy ?Z90.710 - Acquired absence of both cervix and uterus (ICD-10) Exam Narrative: Exam Narrative: Constitutional: Well-developed, well-nourished, no acute distress. HEENT: Normocephalic, atraumatic. Neck: Normal range of motion. Nontender. Supple. Heart: Regular. No murmurs. Normal rate. Intact distal pulses. Lungs: Clear to auscultation. No chest discomfort. No wheezes, rhonchi, or rales. Abdomen: Normal bowel sounds. Nontender. No rebound tenderness. Genitalia: Deferred. Back: No midline tenderness. Normal range of motion. Extremities: Normal range of motion. No injury. Skin: Intact. No rash. Warm. No erythema or pallor. Neurologic: No altered sensation. No weakness. Alert and oriented. No facial asymmetry. Tongue is midline. [id number] is normal. No pronator drift. [employer] Worker strength is equal bilaterally. Able to raise each leg from the bed. Psychiatric: No suicidality. No anxiety or depression. No insomnia. Nursing notes and vitals signs are reviewed. Const: Vital Signs, click to edit/add: Vital Signs - 24 hr 09/15/25 17:05 Temperature 97.9 F Pulse Rate [Pulse Oximeter] 64 Respiratory Rate 18 Blood Pressure [Ri ght Upper Arm] 129/83 Pulse Oximetry 97 Oxygen Delivery Me thod Room Air Course Vital Signs Vital signs: Initial Vital Signs Temperature 97.9 F 09/15/25 17:05 Temperature Source Temporal Artery Scan 09/15/25 17:05 Pulse Rate 64 09/15/25 17:05 Respiratory Rate 18 09/15/25 17:05 Blood Pressure 129/83 09/15/25 17:05 Blood Pressure Mean 98 09/15/25 17:05 Pulse Oximetry 97 09/15/25 17:05 Oxygen Delivery Method Room Air 09/15/25 17:05 Vital Signs Temperature 97.9 F 09/15/25 17:05 Pulse Rate 64 09/15/25 17:05 Respiratory Rate 18 09/15/25 17:05 Blood Pressure 129/83 09/15/25 17:05 Pulse Oximetry 97 09/15/25 17:05 Oxygen Delivery Method Room Air 09/15/25 17:05 Temperature 97.9 F 09/15/25 17:05 Pulse Rate 64 09/15/25 17:05 Respiratory Rate 18 09/15/25 17:05 Blood Pressure 129/83 09/15/25 17:05 Pulse Oximetry 97 09/15/25 17:05 Oxygen Delivery Method Room Air 09/15/25 17:05 Medical Decision Making MDM Narrative Medical decision making narrative: This patient comes in reporting a syncopal event that occurred 3 days ago. Since then she has been feeling normal but does report some occasional episodes of feeling off balance or dizzy. She arrives here with normal vital signs. She does have diabetes and recently had an increase of her glipizide dose. She states that she does not check her blood glucose regularly. I did explain various causes of loss of consciousness including various combination of things that can decrease apply of oxygen and glucose to the brain. Most suspicious among these various possibilities is the recent increase of her glipizide dosing and resultant hypoglycemic episodes. The patient does not have any records to verify this. I did recommend checking her blood here today but she stated that she plans to follow-up with her primary physician and declined this for now. I did recommend that she revert back to the previous dosing of glipizide as it is always a concern if hypoglycemia is happening. I did recommend getting the glucose levels to help her primary physician more accurately dose medicines to manage her diabetes. The patient has normal neurologic exam. Her symptoms are not at all suspicious of a stroke or a seizure. Discharge Plan Discharge Clinical Impression: Syncope Patient Disposition: Home, Self-Care Condition: Stable Additional Instructions: revert back to previous dosing of glipizide and follow-up with primary physician for ongoing management of medications. It is very helpful if blood glucose can be checked regularly to get a better understanding of proper dosing of her medicines. Return if symptoms are recurrent or worsening. Prescriptions: No Action gabapentin 100 mg capsule 100 mg PO 3XD morphine 15 mg tablet extended release 15 mg PO BID amitriptyline 10 mg tablet 10 mg PO hydrochlorothiazide 12.5 mg tablet 12.5 mg PO DAILY paroxetine HCl 40 mg tablet 60 mg PO DAILY pantoprazole 40 mg tablet,delayed release (DR/EC) 40 mg PO DAILY albuterol sulfate 90 mcg/actuation HFA aerosol inhaler 2 inh inhalation Q8H PRN lorazepam 1 mg tablet 2 mg PO metoprolol succinate 100 mg tablet extended release 24 hr 100 mg PO DAILY aspirin [Adult Aspirin Regimen] 81 mg tablet,delayed release (DR/EC) 81 mg PO QDAY glipizide 5 mg tablet extended release 24hr 5 mg PO DAILY Follow Up/Referrals: Makayla Phelps PA-C [Primary Care Provider, Family Practice] Stand Alone Forms: [employer] Info Instructions
[2025-09-15 20:55] VITALS: BP 125/84; PULSE 69; RESP 18; TEMP 36.6; O2SAT 97
[2025-09-15 21:29] VITALS: BP 125/84; PULSE 69; RESP 18; TEMP 36.6
== END 2025-09-15 21:29 | disposition home or self-care (01) ==
LOC: ED 20:57
PROVIDERS: Emergency Provider Emergency Medicine Emergency Medical Services; PCP Student in an Organized Health Care Education/Training Program
DX: R55 Syncope and collapse (principal)
CPT/HCPCS: 99283; 99284